=== PATIENT | male | born 1935 | race Caucasian/White ===

== ENCOUNTER 2020-07-05 15:13 | Outpatient (RCR) | payer MEDICARE, SELFPAY ==
[2020-07-05] MEDS: COVID-19 VACC, MRNA(PFIZER)/PF 30 MCG/0.3 ML SYRINGE IM (11:14)
[2020-07-26] MEDS: COVID-19 VACC, MRNA(PFIZER)/PF 30 MCG/0.3 ML SYRINGE IM (11:09)
== END 2020-07-05 23:59 ==
LOC: IMMUN 15:13
PROVIDERS: Visit Provider Family Medicine
DX: Z23 Encounter for immunization (principal)
CPT/HCPCS: 0001A; 0002A; 91300

== ENCOUNTER 2020-09-20 21:24 | Inpatient (IN) | payer MEDICARE, OTHER, SELFPAY ==
[2020-09-20] VITALS (10 sets, daily range): BP systolic 121–176; BP diastolic 40–98; PULSE 92–105; RESP 17–27; TEMP 36.3–37.4; O2SAT 98–99; BMI 26.4
--- NOTE | 2020-09-20 21:38 | PCM.HP.STD ---
HPI - General General Date of Admission: 09/20/20 Date of Service: 09/20/20 Chief Complaint: Severe sepsis HPI Narrative KRYSTINA REYNOLDS, is a 85 M who was directly admitted to ICU at [facility] from an emergency room at [facility], patient went to the hospital there for assessment of generalized weakness, chills, and possible urinary tract infection. Patient had been placed on Keflex 48 hours ago for possible UTI. Labs were obtained at the emergency room, patient's white blood cell count was elevated at 22.5, chemistry profile was remarkable for potassium of 5.7, BUN of 60, creatinine of 2.02, patient's lactic acid was elevated at 3.4, glucose was 281. Patient had an EKG performed which showed sinus tachycardia at 102, no acute ischemic changes were noted, patient had a chest x-ray performed that showed no acute cardiopulmonary findings, UA was unable to be obtained secondary to inability to place a Starr catheter. Covid 19 test was negative, and troponin was unremarkable. Patient was felt to have severe sepsis secondary to acute cystitis-due to self-catheterization at home for urinary retention. Patient was given IV Zosyn at the emergency room and transferred to [facility] ICU for direct admission. [facility] Medical History (Updated 09/21/20 @ 01:[address] Andrew Gleason, ) BPH (benign prostatic hyperplasia) CAD (coronary artery disease) Diabetes mellitus type 2 with complications History of TIA (transient ischemic attack) HLD (hyperlipidemia) HTN (hypertension) Lumbar degenerative disc disease PVD (peripheral vascular disease) Self-catheterizes urinary bladder Urinary retention due to benign prostatic hyperplasia Home Medications aspirin 81 mg PO DAILY 09/20/20 [History Last Taken Unknown] glimepiride [Amaryl] 2 mg PO DAILY 09/20/20 [History Last Taken Unknown] losartan 100 mg PO DAILY 09/20/20 [History Last Taken Unknown] metformin 1,000 mg PO BID 09/20/20 [History Last Taken Unknown] metoprolol succinate 50 mg PO BID 09/20/20 [History Last Taken Unknown] omeprazole [Prilosec] 40 mg PO DAILY 09/20/20 [History Last Taken Unknown] rosuvastatin [Crestor] 5 mg PO QHS 09/20/20 [History Last Taken Unknown] Allergy/AdvReac Type Severity Reaction Status Date / Time Sulfa (Sulfonamide Allergy Unclear Verified 09/20/20 18:31 Antibiotics) Social History Smoking Status: Never smoker ROS Constitutional Constitutional: Reports chills; Denies anorexia, change in weight, fever(s), night sweats or weakness Eyes Eyes: Denies blurry vision, change in vision, discharge from eye(s) or eye pain Cardiovascular Cardiovascular: Denies chest pain, claudication, dyspnea on exertion, edema or palpitations Respiratory/Chest Respiratory/Chest: Denies cough, hemoptysis, shortness of breath at rest or shortness of breath with exertion Gastrointestinal Gastrointestinal: Denies abdominal pain, constipation, diarrhea, hematemesis, hematochezia, melena, nausea or vomiting Genitourinary Genitourinary: Reports dysuria and other Details: Patient states he has chronic urinary retention and has to self catheterize, this has been his norm for approximately 30 years. ; Denies hematuria Musculoskeletal Musculoskeletal: Denies back pain, joint pain, joint stiffness, joint swelling, myalgias or neck pain Neurologic Neurologic: Denies abnormal gait, abnormal speech, dizziness, focal weakness, headache(s), loss of vision, numbness, other visual disturbances, paresthesias, syncope or tingling Psychiatric Psychiatric: Denies anxiety, cognitive impairment, depression, irritability, mood swings or suicidal ideation Endocrine Endocrinology: Denies change in body appearance, cold intolerance, excessive sweating, heat intolerance, polydipsia or polyuria Hematologic/Lymphatic Hematologic/Lymphatic: Denies none, anemia, easy bleeding, easy bruising or lymphadenopathy Allergic/Immunologic Allergic/Immunologic: Denies rhinitis, urticaria, eczemia or asthma Vital Signs Vital Signs Vital Signs: 09/20/20 20:11 09/20/20 20:21 Temperature 97.3 F L 97.7 F L Temperature Source Temporal Temporal Pulse Rate 92 92 Respiratory Rate 18 18 Blood Pressure 121/98 H Blood Pressure Mean 105 Blood Pressure Source Monitor Blood Pressure Position Semi-Fowlers Blood Pressure Location Left Arm Pulse Ox 98 98 Oxygen Delivery Method Room Air Room Air Weight Weight: 88.6 kg Body Mass Index (BMI) 26.4 Physical Exam Const alert, oriented x3, no apparent distress, healthy appearing and well nourished General Appearance: cooperative, well kempt and well developed Orientation / Consciousness: awake, oriented to person, oriented to place and oriented to time HEENT normocephalic, head/scalp atraumatic, hearing grossly normal bilaterally and moist oral mucous membranes Eyes PERRL, EOMs intact bilaterally and conjunctivae normal Neck nuchal rigidity, supple, no JVD, thyroid normal and no carotid bruits General: trachea midline Resp normal respiratory effort, no retractions, no use of accessory muscles and clear to auscultation bilaterally Auscultation: Negative for rales, rhonchi or wheezes Cardio regular rate, regular rhythm, S1 normal heart sound, S2 normal heart sound, no murmurs, no rub, no gallops and no clicks GI normal to inspection, nondistended, normoactive bowel sounds, soft to palpation, non-tender and non-distended Extremity no clubbing, cyanosis or edema Skin no rashes or lesions noted, skin turgor normal and no jaundice General Skin Exam: no breakdown Neuro oriented x3, CN's II-XII intact bilaterally, moves all extremities, no focal motor deficits and no sensory deficits noted Sensorium / Orientation: awake and alert Speech: speech normal Psych thought process normal and affect normal Assessment & Plan Assessment/Plan (1) Severe sepsis: PLAN: 1. Severe sepsis secondary to acute cystitis from chronic self-catheterization due to chronic urinary retention-patient was admitted to ICU, he will remain on IV Zosyn, labs will be monitored. #2 acute cystitis secondary to chronic self-catheterization due to chronic urinary retention-we were able to obtain a urine sample from the patient but unfortunately he had been on antibiotics for 2 days as an outpatient and received IV Zosyn at the emergency room at [facility]. #3 type 2 diabetes-patient's blood sugars will be monitored #4 essential hypertension #5 hyperlipidemia #6 BPH with urinary retention-patient states he undergone two TURPs in the past, he does not currently have a urologist as his urologist has retired. #7 hyperkalemia-patient's labs will be rechecked #8 elevated creatinine at 2.02-patient's previous creatinine according to [facility] records was in 2019-it was 0.93, patient will be given IV fluids and labs will be monitored, I believe he probably has dehydration. Charges/Coding Visit Charges Inpatient E&M: 97595 Init Hosp L3
[2020-09-20] MEDS: 0.9% Normal Saline 1,000 ML 125 ML IV (22:31)
[2020-09-20 22:41] LABS: Bedside Glucose 180 mg/dL (70-110)
[2020-09-20] MEDS: Heparin Injection (Vial) 5,000 UNIT/ML VIAL 5000 UNIT SC (22:47)
[2020-09-21] VITALS (20 sets, daily range): BP systolic 119–209; BP diastolic 49–79; PULSE 90–108; RESP 0–25; TEMP 36.4–37.4; O2SAT 92–100
[2020-09-21] MEDS: Acetaminophen 325 MG Tablet 650 MG PO (04:42)
[2020-09-21 04:46] LABS: Absolute Lymphocyte Count 0.68 X10^3/uL (0.83-4.51); Absolute Neutrophil Count 17.3 X10^3/uL (2.0-7.7); Basophil# 0.07 X10^3/uL; Basophil% 0.4 % (0-1); Eosinophil# 0.02 X10^3/uL; Eosinophils% 0.1 % (0-5); Hematocrit 37.3 % (40-54); Hemoglobin 12.6 g/dL (13.0-16.5); Lymphocyte # 0.68 X10^3/ul (0.83-4.51); Lymphocyte % 3.5 % (19-41); Mean Corp Hgb Conc 33.8 g/dL (32-36); Mean Corpuscular Volume 91.9 fL (80-94); Mean Platelet Vol. 9.3 fl (6.2-12.0); Monocyte# 1.21 X10^3/uL; Monocyte% 6.2 % (0-10); NRBC Flagged by Analyzer 0 % (0-5); Neutrophil # 17.34 X10^3/uL (2.7-7.7); Neutrophil % 89.1 % (47-70); Platelet Count 462 K/mm3 (150-450); RBC Distribution Width CV 13.1 % (11.6-14.6); RBC Distribution Width SD 44.2 fl (35.1-43.9); Red Blood Count 4.06 M/mm3 (4.6-6.2); White Blood Count 19.5 K/mm3 (4.4-11.0)
[2020-09-21 05:01] LABS: Anion Gap 8 (5-15); BUN 56 mg/dL (7-18); BUN/Creat Ratio 28.6 RATIO (10-20); Calcium,Total 7.6 mg/dL (8.5-10.1); Chloride 109 mmol/L (98-107); Creatinine, Serum 1.96 mg/dL (0.70-1.30); EST Glomerular Filtration Rate 35 mL/min (>60); Est Glom Filt Rate - Afr Amer 42 mL/min (>60); Estimated Creatinine Clearance 31.34 ml/min; Glucose 195 mg/dL (74-106); Potassium 5.6 mmol/L (3.5-5.1); Sodium Level 137 mmol/L (136-145)
[2020-09-21] MEDS: Insulin Lispro 100 UNIT/ML INSULN.PEN SC ×2 (06:56→12:00)
[2020-09-21 07:00] LABS: Bedside Glucose 181 mg/dL (70-110)
--- NOTE | 2020-09-21 07:36 | PN.HOSP_ITS ---
Subjective Subjective Patient is an 85-year-old gentleman who performs self-catheterization as a result of chronic urinary retention admitted from [facility] with severe sepsis secondary to acute cystitis Objective Data Objective Data Vital Signs: Vital Signs Temp Pulse Resp BP Pulse Ox 98.7 F 97 21 H 159/59 H 98 09/21/20 06:00 09/21/20 06:00 09/21/20 06:00 09/21/20 06:00 09/21/20 06:00 Oxygen Delivery Method Room Air Weight: 89 kg Body Mass Index (BMI) 26.4 Intake & Output: Intake and Output for Last 24 Hours 09/19/20 09/20/20 09/21/20 23:59 23:59 23:59 Intake Total 440 / 440 Output Total 225 / 450 525 / 525 Balance -225 / -210 -85 / -85 Lab / Micro Data Result Diagrams: 09/21/20 04:35 09/21/20 04:35 Labs: Laboratory Results - last 24 hr 09/20/20 09/21/20 09/21/20 22:36 04:35 04:35 WBC 19.5 H RBC 4.06 L Hgb 12.6 L Hct 37.3 L MCV 91.9 MCH 31.0 MCHC 33.8 RDW Std Deviation 44.2 H RDW Coeff of Andrea 13.1 Plt Count 462 H MPV 9.3 Immature Gran % (Auto) 0.700 Neut % (Auto) 89.1 H Lymph % (Auto) 3.5 L [place] % (Auto) 6.2 Eos % (Auto) 0.1 Baso % (Auto) 0.4 Absolute Neuts (auto) 17.3 H Absolute Lymphs (auto) 0.68 L Nucleated RBC % 0 Sodium 137 Potassium 5.6 H Chloride 109 H Carbon Dioxide 20.0 L Anion Gap 8 BUN 56 H Creatinine 1.96 H Estim Creat Clear Calc 31.34 Est GFR (MDRD) Af Amer 42 L Est GFR (MDRD) Non-Af 35 L BUN/Creatinine Ratio 28.6 H Glucose 195 H Calcium 7.6 L POC Glucose 180 H 09/21/20 06:56 WBC RBC Hgb Hct MCV MCH MCHC RDW Std Deviation RDW Coeff of Andrea Plt Count MPV Immature Gran % (Auto) Neut % (Auto) Lymph % (Auto) [place] % (Auto) Eos % (Auto) Baso % (Auto) Absolute Neuts (auto) Absolute Lymphs (auto) Nucleated RBC % Sodium Potassium Chloride Carbon Dioxide Anion Gap BUN Creatinine Estim Creat Clear Calc Est GFR (MDRD) Af Amer Est GFR (MDRD) Non-Af BUN/Creatinine Ratio Glucose Calcium POC Glucose 181 H Physical Exam Narrative GENERAL: cooperative HEENT: Atraumatic; EYES; Anicteric, Normal Conjunctiva NECK; supple, normal thyroid, RESPIRATORY: Diminished to auscultation CARDIOVASCULAR: Regular S1 S2, GI: soft, normoactive bowel sounds, : No Renal angle tenderness; EXTREMITIES: No edema, no clubbing, MUSCULOSKELETAL: no muscle waisting NEURO: Awake; no lateralizing signs. SKIN: No Rash PSYCH; Flat affect Assessment & Plan Assessment/Plan (1) Severe sepsis: PLAN: Patient is an 85-year-old gentleman who performs self-c atheterization as a result of chronic urinary retention admitted from [facility] with severe sepsis secondary to acute cystitis 1. Severe sepsis ?Secondary to acute cystitis from chronic self-catheterization as a result of chronic urinary retention. Admitted to the intensive care unit management protocol with IV fluid resuscitation monitoring with CBC BMP and lactic acid. Cultures were sent with plans to adjust fluids based on culture result 2. Essential hypertension ?Patient blood pressure markedly elevated added amlodipine and hydralazine to patient's therapy 3. Dyslipidemia -Patient is on statin therapy, continued at home dose 4. Diabetes mellitus type II -patient's oral hypoglycemics held. Placed on long acting insulin, Accu-Cheks a.c. and at bedtime and covered with sliding scale insulin 5. BPH ?With chronic urinary retention patient performs self-catheterization at home has previously undergone 2 previous TURPs in the past 6. Hyperkalemia ?Secondary to patient impaired kidney function treated per protocol with subsequent monitoring of electrolytes ordered 7. Renal failure ?Chronicity unknown baseline creatinine not available patient be resuscitated with IV fluid with subsequent monitoring. Also ordered kidney ultrasound 8. GERD ?On PPI 9. DVT prophylaxis - heparin Charges/Coding Visit Charges Inpatient E&M: 40579 [facility] Hosp L3
[2020-09-21] MEDS: 0.9% Normal Saline 1,000 ML 125 ML IV ×2 (08:20→16:37)
[2020-09-21] MEDS: Glimepiride 2 MG Tablet PO (08:22)
[2020-09-21] MEDS: Aspirin E.C. 81 MG Tablet PO (08:22)
[2020-09-21] MEDS: Losartan Potassium 100 MG Tablet PO (08:23)
[2020-09-21] MEDS: Pantoprazole Sodium 40 MG Tablet PO (08:23)
[2020-09-21] MEDS: Metoprolol(XL)Succ 50 MG Tablet PO ×2 (08:23→21:35)
[2020-09-21] MEDS: Heparin Injection (Vial) 5,000 UNIT/ML VIAL 5000 UNIT SC ×2 (08:23→21:35)
[2020-09-21] MEDS: Ondansetron 4 MG/2 ML Vial IV (08:25)
--- NOTE | 2020-09-21 09:20 | RAD_ITS ---
STUDY: X-RAY - ABDOMEN/PELVIS REASON FOR EXAM: Male, 85 years old. Abdominal distension TECHNIQUE: AP supine and decubitus views of the abdomen and pelvis. COMPARISON: None. FINDINGS: Normal visualized lung bases. There is a moderate amount of colonic fecal material. The visualized liver, spleen and kidneys are grossly normal in size and morphology. There are calcified phleboliths in the pelvis. There are diffuse degenerative changes of the visualized lumbar spine. RAD/Abd Inc Decub and/or Erect IMPRESSION: Moderate amount of fecal material is seen in the colon. Electronically Signed: Deny Moon MD at 14:53 EDT , Service support ,
[2020-09-21 11:24] LABS: Anion Gap 9 (5-15); BUN 54 mg/dL (7-18); BUN/Creat Ratio 25.4 RATIO (10-20); Calcium,Total 7.9 mg/dL (8.5-10.1); Chloride 108 mmol/L (98-107); Creatinine, Serum 2.13 mg/dL (0.70-1.30); EST Glomerular Filtration Rate 32 mL/min (>60); Est Glom Filt Rate - Afr Amer 38 mL/min (>60); Estimated Creatinine Clearance 28.84 ml/min; Glucose 233 mg/dL (74-106); Potassium 5.5 mmol/L (3.5-5.1); Sodium Level 137 mmol/L (136-145)
[2020-09-21] MEDS: proMETHazine 25 MG/ML Syringe 12.5 MG IM (11:57)
[2020-09-21] MEDS: amLODIPine 10 MG Tablet PO (12:00)
[2020-09-21] MEDS: hydrALAZINE 25 MG Tablet PO ×2 (12:00→21:34)
[2020-09-21 12:16] LABS: Bedside Glucose 202 mg/dL (70-110)
--- NOTE | 2020-09-21 13:10 | CASEMGMT ---
MINH IZAGUIRRE Assessment: Face to Face with pt for initial transition planning/care coordination assessment. RN CM introduced self and role at [facility], pt voices understanding and consents to assessment. Pt is A/O x4 and answers all questions appropriately at this time. Pt lying in bed with at bedside. Care providers, pharmacy, and demographics verified/updated. Admitting Dx: Severe sepsis, UTI PCP: Adry Specialists: osvaldo Quevedo Preferred Pharmacy: [facility] Insurance: [facility] Prescription Benefit: yes LW/HPOA: Pt denies having LW/DPOA. LNOK: Lidya Benites, Living Arrangements: Pt lives with in a single story house with two steps to enter. Pt states he was I with ADL's at home. Pt denies concerns at home. Transportation: Pt states he drives self and denies issues with transportation. DME/HHC/SNF: Pt denies having any DME, previous HHC or SNF stays. Pt states no concerns with going home at time of dc. Therapy has not worked with patient yet. Pt states if it is recommended he may be agreeable to HH therapy in the home. Patient was provided a list of HHC providers including quality and resource use data and consistent with the patient?s preferred geographic region, medical needs, and insurance network. Pt states no further concerns/needs. CM to follow for therapy needs. Advised pt to ask CM if any further question/concerns/needs arise, voices understanding. Pt Goal: Home Plan: Home
[2020-09-21 16:41] LABS: Bedside Glucose 142 mg/dL (70-110)
[2020-09-21] MEDS: Atorvastatin Calcium 10 MG Tablet PO (21:35)
[2020-09-21 21:45] LABS: Bedside Glucose 132 mg/dL (70-110)
[2020-09-21] MEDS: Bisacodyl 10 MG Suppository RC (22:22)
[2020-09-21] MEDS: Temazepam 15 MG Capsule PO (22:22)
[2020-09-22] VITALS (10 sets, daily range): BP systolic 129–152; BP diastolic 55–80; PULSE 78–103; RESP 16–20; TEMP 36.6–36.8; O2SAT 94–97
[2020-09-22] MEDS: 0.9% Normal Saline 1,000 ML 125 ML IV (00:25)
[2020-09-22] MEDS: hydrALAZINE 25 MG Tablet PO ×3 (06:28→22:21)
[2020-09-22 06:40] LABS: Bedside Glucose 136 mg/dL (70-110)
[2020-09-22 07:07] LABS: Absolute Lymphocyte Count 0.84 X10^3/uL (0.83-4.51); Absolute Neutrophil Count 11.7 X10^3/uL (2.0-7.7); Basophil# 0.06 X10^3/uL; Basophil% 0.4 % (0-1); Eosinophil# 0.09 X10^3/uL; Eosinophils% 0.7 % (0-5); Hematocrit 37.1 % (40-54); Hemoglobin 12.2 g/dL (13.0-16.5); Lymphocyte # 0.84 X10^3/ul (0.83-4.51); Lymphocyte % 6.2 % (19-41); Mean Corp Hgb Conc 32.9 g/dL (32-36); Mean Corpuscular Hgb 30.7 pg (27.0-32.0); Mean Corpuscular Volume 93.2 fL (80-94); Mean Platelet Vol. 9.4 fl (6.2-12.0); Monocyte# 0.86 X10^3/uL; Monocyte% 6.3 % (0-10); NRBC Flagged by Analyzer 0 % (0-5); Neutrophil # 11.66 X10^3/uL (2.7-7.7); Neutrophil % 85.9 % (47-70); Platelet Count 487 K/mm3 (150-450); RBC Distribution Width CV 13.2 % (11.6-14.6); RBC Distribution Width SD 45.7 fl (35.1-43.9); Red Blood Count 3.98 M/mm3 (4.6-6.2); White Blood Count 13.6 K/mm3 (4.4-11.0)
[2020-09-22 07:31] LABS: Anion Gap 7 (5-15); BUN 53 mg/dL (7-18); BUN/Creat Ratio 20.9 RATIO (10-20); Calcium,Total 7.6 mg/dL (8.5-10.1); Chloride 112 mmol/L (98-107); Creatinine, Serum 2.54 mg/dL (0.70-1.30); EST Glomerular Filtration Rate 26 mL/min (>60); Est Glom Filt Rate - Afr Amer 31 mL/min (>60); Estimated Creatinine Clearance 23.44 ml/min; Glucose 137 mg/dL (74-106); Potassium 5.3 mmol/L (3.5-5.1); Sodium Level 139 mmol/L (136-145)
--- NOTE | 2020-09-22 07:40 | PN.HOSP_ITS ---
Subjective Subjective Patient was transferred from the ICU to [facility] floor. Seen this a.m. has markedly distended abdomen stat KUB ordered demonstrated Nonspecific gaseous small bowel with air-fluid levels could be due to ileus. Early bowel obstruction is less likely.. Patient also complaining of being constipated was given suppository without much effect. There is also worsening of patient's kidney function Objective Data Objective Data Vital Signs: Vital Signs Temp Pulse Resp BP Pulse Ox 97.9 F 81 16 142/80 H 94 09/22/20 02:10 09/22/20 06:28 09/22/20 02:10 09/22/20 06:28 09/22/20 02:10 Oxygen Delivery Method Room Air Weight: 75.2 kg Body Mass Index (BMI) 26.4 Intake & Output: Intake and Output for Last 24 Hours 09/20/20 09/21/20 09/22/20 23:59 23:59 23:59 Intake Total 2540.5 / 2540.5 1098.75 / 1098.75 Output Total 225 / 450 950 / 950 100 / 100 Balance -225 / -210 1590.5 / 1590.5 998.75 / 998.75 Lab / Micro Data Result Diagrams: 09/22/20 06:14 09/22/20 06:14 Labs: Laboratory Results - last 24 hr 09/21/20 09/21/20 09/21/20 10:20 11:55 16:33 WBC RBC Hgb Hct MCV MCH MCHC RDW Std Deviation RDW Coeff of Andrea Plt Count MPV Immature Gran % (Auto) Neut % (Auto) Lymph % (Auto) [place] % (Auto) Eos % (Auto) Baso % (Auto) Absolute Neuts (auto) Absolute Lymphs (auto) Nucleated RBC % Sodium 137 Potassium 5.5 H Chloride 108 H Carbon Dioxide 20.0 L Anion Gap 9 BUN 54 H Creatinine 2.13 H Estim Creat Clear Calc 28.84 Est GFR (MDRD) Af Amer 38 L Est GFR (MDRD) Non-Af 32 L BUN/Creatinine Ratio 25.4 H Glucose 233 H Calcium 7.9 L Magnesium POC Glucose 202 H 142 H 09/21/20 09/22/20 09/22/20 21:33 06:14 06:14 WBC 13.6 H RBC 3.98 L Hgb 12.2 L Hct 37.1 L MCV 93.2 MCH 30.7 MCHC 32.9 RDW Std Deviation 45.7 H RDW Coeff of Andrea 13.2 Plt Count 487 H MPV 9.4 Immature Gran % (Auto) 0.500 Neut % (Auto) 85.9 H Lymph % (Auto) 6.2 L [place] % (Auto) 6.3 Eos % (Auto) 0.7 Baso % (Auto) 0.4 Absolute Neuts (auto) 11.7 H Absolute Lymphs (auto) 0.84 Nucleated RBC % 0 Sodium 139 Potassium 5.3 H Chloride 112 H Carbon Dioxide 20.0 L Anion Gap 7 BUN 53 H Creatinine 2.54 H Estim Creat Clear Calc 23.44 Est GFR (MDRD) Af Amer 31 L Est GFR (MDRD) Non-Af 26 L BUN/Creatinine Ratio 20.9 H Glucose 137 H Calcium 7.6 L Magnesium 2.0 POC Glucose 132 H 09/22/20 06:25 WBC RBC Hgb Hct MCV MCH MCHC RDW Std Deviation RDW Coeff of Andrea Plt Count MPV Immature Gran % (Auto) Neut % (Auto) Lymph % (Auto) [place] % (Auto) Eos % (Auto) Baso % (Auto) Absolute Neuts (auto) Absolute Lymphs (auto) Nucleated RBC % Sodium Potassium Chloride Carbon Dioxide Anion Gap BUN Creatinine Estim Creat Clear Calc Est GFR (MDRD) Af Amer Est GFR (MDRD) Non-Af BUN/Creatinine Ratio Glucose Calcium Magnesium POC Glucose 136 H Radiography Diagnostic Testing: Radiology Impression Abdomen X-Ray 09/21/20 09:20 IMPRESSION: Moderate amount of fecal material is seen in the colon. Electronically Signed: Deny Moon MD at 14:53 EDT , Service support , Physical Exam Narrative GENERAL: cooperative HEENT: Atraumatic; EYES; Anicteric, Normal Conjunctiva NECK; supple, normal thyroid, RESPIRATORY: Diminished to auscultation CARDIOVASCULAR: Regular S1 S2, GI: Abdomen is distended tympanic to percussion : No Renal angle tenderness; EXTREMITIES: No edema, no clubbing, MUSCULOSKELETAL: no muscle waisting NEURO: Awake; no lateralizing signs. SKIN: No Rash PSYCH; Flat affect Assessment & Plan Assessment/Plan (1) Severe sepsis: PLAN: Patient is an 85-year-old gentleman who performs self- catheterization as a result of chronic urinary retention admitted from [facility] with severe sepsis secondary to acute cystitis 1. Severe sepsis ?Secondary to acute cystitis from chronic self-catheterization as a result of chronic urinary retention. Admitted to the intensive care unit management protocol with IV fluid resuscitation monitoring with CBC BMP and lactic acid. Cultures were sent with plans to adjust fluids based on culture result -Patient's WBC count remains elevated 2. Abdominal distention ?Imaging studies obtained demonstrated Nonspecific gaseous small bowel with air- fluid levels could be due to ileus. Early bowel obstruction is less likely. Patient is kept n.p.o. small bowel series with Gastrografin ordered for subseque nt evaluation 3. Acute renal failure ?Patient kidney function continues to worsen on IV fluids. Ordered kidney ultrasound 4. Diabetes mellitus type II -patient's oral hypoglycemics held. Placed on long acting insulin, Accu-Cheks a.c. and at bedtime and covered with sliding scale insulin -Patient long-acting insulin held in view of patient being kept n.p.o. 5. BPH ?With chronic urinary retention patient performs self-catheterization at home has previously undergone 2 previous TURPs in the past 6. Hyperkalemia ?Secondary to patient impaired kidney function treated per protocol with sub sequent monitoring of electrolytes ordered 7. Essential hypertension ?Patient blood pressure markedly elevated added amlodipine and hydralazine to patient's therapy 8. Dyslipidemia -Patient is on statin therapy, continued at home dose 9. GERD ?On PPI 10. DVT prophylaxis - heparin Charges/Coding Visit Charges Inpatient E&M: 30201 [facility] Hosp L3
[2020-09-22] MEDS: Aspirin E.C. 81 MG Tablet PO (08:08)
[2020-09-22] MEDS: 0.9% Normal Saline 1,000 ML 150 ML IV ×2 (08:09→18:05)
[2020-09-22] MEDS: Ondansetron 4 MG/2 ML Vial IV (08:35)
[2020-09-22] MEDS: 0.9% Saline Lock 10 ML Syringe IV ×4 (08:35→14:04)
--- NOTE | 2020-09-22 08:56 | RAD_ITS ---
STUDY: X-RAY - ABDOMEN/PELVIS REASON FOR EXAM: Male, 85 years old. Abdominal distension TECHNIQUE: Supine and upright. COMPARISON: None. FINDINGS: Nonspecific gaseous small bowel loops and colon with air-fluid levels. There is no demonstrated free abdominal air. Rectal line is seen. Normal soft tissue structures. Degenerative changes in the spine. RAD/Abd Inc Decub and/or Erect IMPRESSION: Nonspecific gaseous small bowel with air-fluid levels could be due to ileus. Early bowel obstruction is less likely. Electronically Signed: Callum Centeno MD at 9:16 EDT Tel , Service support ,
[2020-09-22] MEDS: Ceftriaxone 1 GM/50 ML BAG IV (09:33)
[2020-09-22] MEDS: Heparin Injection (Vial) 5,000 UNIT/ML VIAL 5000 UNIT SC ×2 (09:43→22:23)
[2020-09-22] MEDS: Metoprolol(XL)Succ 50 MG Tablet PO (09:44)
[2020-09-22] MEDS: amLODIPine 10 MG Tablet PO (09:45)
[2020-09-22] MEDS: Pantoprazole Sodium 40 MG Tablet PO (09:45)
--- NOTE | 2020-09-22 09:45 | US_ITS ---
EXAM: US RETROPERITONEAL COMPLETE, RENAL CLINICAL INDICATION: Renal failure TECHNIQUE: Grayscale and color Doppler sonographic evaluation of the retroperitoneum was performed. This report was created using [employer] report [employer] technology. COMPARISON: None. FINDINGS: LIMITATIONS: Limited by bowel gas and patient condition. RIGHT KIDNEY: Mild right hydronephrosis. Right renal cortical thinning. No shadowing calculus. No perinephric collection is demonstrated. LEFT KIDNEY: Left renal cortical thinning. 2 left renal simple-appearing cysts with well-defined margins, anechoic internal structure and posterior acoustic enhancement measure up to 3.5 cm. No required imaging follow-up needed given high likelihood of benign nature. No hydronephrosis. No shadowing calculus. No perinephric collection is demonstrated. BLADDER: Urinary bladder is decompressed by Starr catheter. FREE FLUID: Mild ascites adjacent to the liver. US/Kidney and Bladder IMPRESSION: 1. Mild ascites adjacent to the liver. 2. Mild right hydronephrosis. 3. Bilateral renal cortical thinning suggesting chronic medical renal disease. Electronically Signed: Pedrito Luis MD ([place]) at 15:30 EDT , Service support ,
[2020-09-22 11:30] LABS: Bedside Glucose 203 mg/dL (70-110)
--- NOTE | 2020-09-22 12:30 | RAD_ITS ---
STUDY: X-RAY - ABDOMEN/PELVIS REASON FOR EXAM: Male, 85 years old. ng placement TECHNIQUE: Single AP view of the abdomen / pelvis. COMPARISON: None. FINDINGS: Esophagogastric tube extends to the gastric fundus. Mild gaseous distention of colon and small bowel, incompletely visualized. There is no demonstrated free abdominal air. The visualized liver, spleen and kidneys are grossly normal in size and morphology. Normal soft tissue structures. There are diffuse degenerative changes of the visualized lumbar spine. RAD/Abdomen Single View (Portable) IMPRESSION: Esophagogastric tube extends to the gastric fundus. Electronically Signed: Pedrito Luis MD ([place]) at 15:28 EDT , Service support ,
[2020-09-22 16:31] LABS: Bedside Glucose 161 mg/dL (70-110)
[2020-09-22] MEDS: Insulin Lispro 100 UNIT/ML INSULN.PEN SC (22:23)
[2020-09-22 22:31] LABS: Bedside Glucose 177 mg/dL (70-110)
[2020-09-23] VITALS (32 sets, daily range): BP systolic 49–184; BP diastolic 20–70; PULSE 50–127; RESP 18–35; TEMP 36.3–36.9; O2SAT 90–99
[2020-09-23] MEDS: 0.9% Normal Saline 1,000 ML 150 ML IV ×2 (00:31→06:49)
[2020-09-23] MEDS: 0.9% Normal Saline 1,000 ML 999 ML IV ×2 (00:50→23:50)
[2020-09-23 05:23] LABS: Absolute Lymphocyte Count 0.78 X10^3/uL (0.83-4.51); Absolute Neutrophil Count 12.4 X10^3/uL (2.0-7.7); Basophil# 0.07 X10^3/uL; Basophil% 0.5 % (0-1); Eosinophil# 0.02 X10^3/uL; Eosinophils% 0.1 % (0-5); Hematocrit 41.1 % (40-54); Hemoglobin 13.4 g/dL (13.0-16.5); Lymphocyte # 0.78 X10^3/ul (0.83-4.51); Lymphocyte % 5.5 % (19-41); Mean Corp Hgb Conc 32.6 g/dL (32-36); Mean Corpuscular Hgb 30.7 pg (27.0-32.0); Mean Corpuscular Volume 94.3 fL (80-94); Mean Platelet Vol. 9.2 fl (6.2-12.0); Monocyte# 0.82 X10^3/uL; Monocyte% 5.8 % (0-10); NRBC Flagged by Analyzer 0 % (0-5); Neutrophil # 12.38 X10^3/uL (2.7-7.7); Neutrophil % 87.3 % (47-70); Platelet Count 525 K/mm3 (150-450); RBC Distribution Width CV 13.2 % (11.6-14.6); RBC Distribution Width SD 45.8 fl (35.1-43.9); Red Blood Count 4.36 M/mm3 (4.6-6.2); White Blood Count 14.2 K/mm3 (4.4-11.0)
[2020-09-23 05:39] LABS: Anion Gap 10 (5-15); BUN 60 mg/dL (7-18); BUN/Creat Ratio 20.7 RATIO (10-20); Calcium,Total 7.8 mg/dL (8.5-10.1); Chloride 114 mmol/L (98-107); EST Glomerular Filtration Rate 22 mL/min (>60); Est Glom Filt Rate - Afr Amer 27 mL/min (>60); Estimated Creatinine Clearance 20.53 ml/min; Glucose 134 mg/dL (74-106); Potassium 5.4 mmol/L (3.5-5.1); Sodium Level 140 mmol/L (136-145)
[2020-09-23] MEDS: hydrALAZINE 25 MG Tablet PO ×2 (06:45→15:11)
[2020-09-23 06:56] LABS: Bedside Glucose 136 mg/dL (70-110)
--- NOTE | 2020-09-23 07:31 | PN.HOSP_ITS ---
Subjective Subjective Patient seen, abdomen remains distended however no significant output from his NG tube. Per nursing staff also had a bowel movement. Ordered CT of the abdomen with oral contrast for subsequent evaluation. Patient kidney function continues to worsen with potassium up to 5.4. Renal ultrasound obtained the day prior reviewed Objective Data Objective Data Vital Signs: Vital Signs Temp Pulse Resp BP Pulse Ox 97.4 F L 102 H 18 141/57 H 96 09/23/20 03:10 09/23/20 06:45 09/23/20 03:10 09/23/20 06:45 09/23/20 03:10 Oxygen Delivery Method Room Air Weight: 75 kg Body Mass Index (BMI) 26.4 Intake & Output: Intake and Output for Last 24 Hours 09/21/20 09/22/20 09/23/20 23:59 23:59 23:59 Intake Total 2540.5 / 2540.5 3354.59 / 3354.59 1910 / 1910 Output Total 950 / 950 750 / 1200 650 / 650 Balance 1590.5 / 1590.5 2604.59 / 2154.59 1260 / 1260 Lab / Micro Data Result Diagrams: 09/23/20 04:55 09/23/20 04:55 Labs: Laboratory Results - last 24 hr 09/22/20 09/22/20 09/22/20 06:14 11:09 16:16 WBC RBC Hgb Hct MCV MCH MCHC RDW Std Deviation RDW Coeff of Andrea Plt Count MPV Immature Gran % (Auto) Neut % (Auto) Lymph % (Auto) [place] % (Auto) Eos % (Auto) Baso % (Auto) Absolute Neuts (auto) Absolute Lymphs (auto) Nucleated RBC % Sodium 139 Potassium 5.3 H Chloride 112 H Carbon Dioxide 20.0 L Anion Gap 7 BUN 53 H Creatinine 2.54 H Estim Creat Clear Calc 23.44 Est GFR (MDRD) Af Amer 31 L Est GFR (MDRD) Non-Af 26 L BUN/Creatinine Ratio 20.9 H Glucose 137 H Calcium 7.6 L Magnesium 2.0 POC Glucose 203 H 161 H 09/22/20 09/23/20 09/23/20 22:18 04:55 04:55 WBC 14.2 H RBC 4.36 L Hgb 13.4 Hct 41.1 MCV 94.3 H MCH 30.7 MCHC 32.6 RDW Std Deviation 45.8 H RDW Coeff of Andrea 13.2 Plt Count 525 H MPV 9.2 Immature Gran % (Auto) 0.800 Neut % (Auto) 87.3 H Lymph % (Auto) 5.5 L [place] % (Auto) 5.8 Eos % (Auto) 0.1 Baso % (Auto) 0.5 Absolute Neuts (auto) 12.4 H Absolute Lymphs (auto) 0.78 L Nucleated RBC % 0 Sodium 140 Potassium 5.4 H Chloride 114 H Carbon Dioxide 16.0 L Anion Gap 10 BUN 60 H Creatinine 2.90 H Estim Creat Clear Calc 20.53 Est GFR (MDRD) Af Amer 27 L Est GFR (MDRD) Non-Af 22 L BUN/Creatinine Ratio 20.7 H Glucose 134 H Calcium 7.8 L Magnesium POC Glucose 177 H 09/23/20 06:40 WBC RBC Hgb Hct MCV MCH MCHC RDW Std Deviation RDW Coeff of Andrea Plt Count MPV Immature Gran % (Auto) Neut % (Auto) Lymph % (Auto) [place] % (Auto) Eos % (Auto) Baso % (Auto) Absolute Neuts (auto) Absolute Lymphs (auto) Nucleated RBC % Sodium Potassium Chloride Carbon Dioxide Anion Gap BUN Creatinine Estim Creat Clear Calc Est GFR (MDRD) Af Amer Est GFR (MDRD) Non-Af BUN/Creatinine Ratio Glucose Calcium Magnesium POC Glucose 136 H Radiography Diagnostic Testing: Radiology Impression Abdomen X-Ray 09/22/20 08:56 IMPRESSION: Nonspecific gaseous small bowel with air-fluid levels could be due to ileus. Early bowel obstruction is less likely. Electronically Signed: Callum Centeno MD at 9:16 EDT Tel , Service support , Renal Ultrasound 09/22/20 09:45 IMPRESSION: 1. Mild ascites adjacent to the liver. 2. Mild right hydronephrosis. 3. Bilateral renal cortical thinning suggesting chronic medical renal disease. Electronically Signed: Pedrito Luis MD ([place]) at 15:30 EDT , Service support , KUB X-Ray 09/22/20 12:30 IMPRESSION: Esophagogastric tube extends to the gastric fundus. Electronically Signed: Pedrito Luis MD ([place]) at 15:28 EDT , Service support , Physical Exam Narrative GENERAL: cooperative HEENT: Atraumatic; EYES; Anicteric, Normal Conjunctiva NECK; supple, normal thyroid, RESPIRATORY: Diminished to auscultation CARDIOVASCULAR: Regular S1 S2, GI: Abdomen is distended tympanic to percussion : No Renal angle tenderness; EXTREMITIES: No edema, no clubbing, MUSCULOSKELETAL: no muscle waisting NEURO: Awake; no lateralizing signs. SKIN: No Rash PSYCH; Flat affect Assessment & Plan Assessment/Plan (1) Severe sepsis: PLAN: Patient is an 85-year-old gentleman who performs self- catheterization as a result of chronic urinary retention admitted from [facility] with severe sepsis secondary to acute cystitis 1. Severe sepsis ?Secondary to acute cystitis from chronic self-catheterization as a result of chronic urinary retention. Admitted to the intensive care unit management protocol with IV fluid resuscitation monitoring with CBC BMP and lactic acid. Cultures were sent with plans to adjust fluids based on culture result -Patient's WBC count remains elevated -09/23/2020; repeat cultures ordered was not sent. 2. Abdominal distention ?Imaging studies obtained demonstrated Nonspecific gaseous small bowel with air- fluid levels could be due to ileus. Early bowel obstruction is less likely. Patient is kept n.p.o. small bowel series with Gastrografin ordered for subsequent evaluation -09/23/2020. Gastrografin test ordered yesterday could not be performed after an NG tube was placed and the contrast material suctioned out. Abdomen remains distended. CT of the abdomen with oral contrast ordered for subsequent evaluation 3. Acute renal failure ?Patient kidney function continues to worsen on IV fluids. Ordered kidney ultrasound ?09/23/2020; renal ultrasound demonstrated mild right hydronephrosis with bilateral renal cortical thinning suggesting chronic medical renal disease. With worsening kidney function consult was placed to nephrology 4. Diabetes mellitus type II -patient's oral hypoglycemics held. Placed on long acting insulin, Accu-Cheks a.c. and at bedtime and covered with sliding scale insulin -Patient long-acting insulin held in view of patient being kept n.p.o. 5. BPH ?With chronic urinary retention patient performs self-catheterization at home has previously undergone 2 previous TURPs in the past 6. Hyperkalemia ?Secondary to patient impaired kidney function treated per protocol with subsequent monitoring of electrolytes ordered ?09/23/2020. Potassium remains elevated patient treated with calcium gluconate dextrose and insulin with subsequent monitoring of electrolytes ordered 7. Essential hypertension ?Patient blood pressure markedly elevated added amlodipine and hydralazine to patient's therapy 8. Dyslipidemia -Patient is on statin therapy, continued at home dose 9. GERD ?On PPI 10. DVT prophylaxis - heparin Charges/Coding Visit Charges Inpatient E&M: 11107 Subs Hosp L3
--- NOTE | 2020-09-23 08:23 | CT_ITS ---
STUDY: CT ABDOMEN AND PELVIS WITHOUT CONTRAST REASON FOR EXAM: Male, 85 years old. Bowel obstruction RADIATION DOSAGE (If Supplied By Facility): CTDIvol = ( 15.33 ) mGy, DLP = ( 792.75 ) mGycm TECHNIQUE: Transaxial images were obtained from the dome of the diaphragm to the symphysis pubis with oral contrast, and without intravenous contrast. Sagittal and coronal images were reconstructed. Individualized dose optimization techniques were used for this CT. COMPARISON: None. FINDINGS: Large bilateral pleural effusions with bibasilar atelectasis. The visualized portions of the heart are within normal limits. Moderate amount of ascites. Edema of the subcutaneous fat suggestive of anasarca. Normal liver. There is non-visualization of the gallbladder, which may be secondary to either contraction or a prior cholecystectomy. Normal spleen. Normal pancreas. Normal bilateral adrenal glands. Normal right kidney. Normal left kidney. Nasogastric tube with the tip in the body the stomach. Normal small intestine. There are multiple colonic diverticula consistent with diverticulosis. There is non-visualization of the appendix. Normal abdominal aorta. Normal inferior vena cava. 5 cm ill-defined area of soft tissue attenuation in the right anterior pararenal space surrounding the inferior vena cava and adjacent to the duodenum and right kidney which may represent lymphadenopathy or scarring. Starr catheter within the collapsed bladder. Normal abdominal wall. There are diffuse degenerative changes of the visualized lumbar spine. CT/Abdomen/Pel W ORAL Cont Only IMPRESSION: 1. No bowel obstruction. 2. Volume overload with anasarca, moderate amount of ascites, and large bilateral pleural effusions with bibasilar atelectasis. 3. 5 cm ill-defined area of soft tissue attenuation in the right anterior pararenal space surrounding the inferior vena cava and adjacent to the duodenum and medial aspect of the right kidney of uncertain etiology and significance which may represent scarring or lymphadenopathy. Electronically Signed: Art Marmolejo MD at 11:43 EDT Tel , Service support ,
[2020-09-23] MEDS: Heparin Injection (Vial) 5,000 UNIT/ML VIAL 5000 UNIT SC ×2 (09:19→22:09)
[2020-09-23] MEDS: 0.9% Saline Lock 10 ML Syringe IV ×7 (09:38→20:11)
[2020-09-23] MEDS: Insulin Lispro 10 UNIT in Syringe 0 ML 6 UNIT IV (09:39)
[2020-09-23] MEDS: Dextrose 50%-Water 25 GM/50 ML DISP.SYRIN IV (09:40)
[2020-09-23] MEDS: Sodium Bicarbonate 8.4% 50 ML Syringe 100 MEQ IV (09:45)
[2020-09-23] MEDS: Ceftriaxone 1 GM/50 ML BAG IV (10:01)
[2020-09-23] MEDS: Ondansetron 4 MG/2 ML Vial IV ×2 (10:16→18:27)
[2020-09-23 10:50] LABS: Bedside Glucose 194 mg/dL (70-110)
[2020-09-23] MEDS: Pantoprazole Sodium 40 MG Tablet PO (11:20)
[2020-09-23] MEDS: amLODIPine 10 MG Tablet PO (11:20)
[2020-09-23] MEDS: Insulin Lispro 100 UNIT/ML INSULN.PEN SC ×2 (12:44→22:09)
[2020-09-23] MEDS: Metoprolol Tartrate 25 MG Tablet PO (13:38)
[2020-09-23] MEDS: Furosemide 100 MG/10 ML Vial 60 MG IV (13:40)
[2020-09-23] MEDS: Acetaminophen 325 MG Tablet 650 MG PO (15:11)
[2020-09-23] MEDS: proMETHazine 25 MG/ML Syringe IM (17:09)
[2020-09-23 17:20] LABS: Bedside Glucose 188 mg/dL (70-110)
[2020-09-23] MEDS: hydrALAZINE 20 MG/ML Vial 10 MG IV (18:25)
[2020-09-23] MEDS: Furosemide 40 MG/4 ML Vial IV (18:27)
[2020-09-23 19:31] LABS: Allen Test Positive; Base Excess -16 mmol/L (-2 to +2); Bicarbonate 9.1 mmol/L (22-26); Blood Gas Specimen Type ART; O2 Delivery Device Cannula; PO2 115 mmHG (75-100); SITE R Radial; SO2 99 % (95-99); Total Carbon Dioxide 10 mmol/L; pCO2 15.7 mmHg (35-45); pH 7.37 (7.35-7.45)
[2020-09-23 19:35] LABS: Bedside Glucose 213 mg/dL (70-110)
[2020-09-23 19:41] LABS: Absolute Lymphocyte Count 0.58 X10^3/uL (0.83-4.51); Absolute Neutrophil Count 15.6 X10^3/uL (2.0-7.7); Basophil# 0.04 X10^3/uL; Basophil% 0.2 % (0-1); Hematocrit 40.6 % (40-54); Hemoglobin 13.7 g/dL (13.0-16.5); Lymphocyte # 0.58 X10^3/ul (0.83-4.51); Lymphocyte % 3.4 % (19-41); Mean Corp Hgb Conc 33.7 g/dL (32-36); Mean Corpuscular Hgb 31.3 pg (27.0-32.0); Mean Corpuscular Volume 92.7 fL (80-94); Mean Platelet Vol. 9.1 fl (6.2-12.0); Monocyte# 0.66 X10^3/uL; Monocyte% 3.9 % (0-10); NRBC Flagged by Analyzer 0 % (0-5); Neutrophil # 15.59 X10^3/uL (2.7-7.7); Neutrophil % 91.9 % (47-70); POSITIVE DIFFERENTIAL YES; Platelet Count 549 K/mm3 (150-450); RBC Distribution Width CV 13.3 % (11.6-14.6); RBC Distribution Width SD 45.4 fl (35.1-43.9); Red Blood Count 4.38 M/mm3 (4.6-6.2)
--- NOTE | 2020-09-23 19:42 | RAD_ITS ---
STUDY: X-RAY - ABDOMEN/PELVIS REASON FOR EXAM: Male, 85 years old. NGT placement TECHNIQUE: Single AP view of the abdomen / pelvis. COMPARISON: None. FINDINGS: Increased density in both lung bases consistent with pleural effusions and atelectasis or infiltrate. A nasogastric tube terminates in the distal stomach. There is an unremarkable bowel gas pattern. There is no demonstrated free abdominal air. The visualized liver, spleen and kidneys are grossly normal in size and morphology. Normal soft tissue structures. Normal visualized osseous structures. RAD/Abdomen Single View IMPRESSION: Nasogastric tube terminates in the distal stomach. Electronically Signed: Nilesh Floyd MD at 20:36 EDT , Service support ,
--- NOTE | 2020-09-23 19:52 | PCM.HOSP.N ---
Hospitalist Note Called to the bedside this evening secondary to patient with a change in status. Per discussion with nursing staff patient is complaining of more significant nausea and abdominal pain since the NG tube was removed at 2 PM. He is also having more shortness of breath. He was given Lasix 60 mg with minimal response. His Starr was flushed and irrigated with good return but again no good output. His renal function has worsened. He had a CT of his abdomen and pelvis today that shows no bowel obstruction and this was done with oral contrast. This however does show fairly significant ascites as well as pleural effusions bilaterally and I suspect this is why Lasix was given. Per discussion with the admitting physician he was given large amounts of fluid resuscitation on admission secondary to his sepsis. Given his worsening status, an ABG was obtained and shows a pH of 7.37 but this is with a PCO2 of 15.7. He is oxygenating well. A bicarb drip was initiated as I do not believe he will be able to maintain normal pH and continue to blow down his PCO2 continuously. This may all be related to his worsening renal failure. Repeat CBC, CMP and lactic acid are pending. If LFTs are abnormal would recommend coagulation studies. NG tube was replaced since the patient did have emesis and has had continued nausea that has been refractory to antiemetics. I discussed the case with general surgery and no noted bowel obstruction or any other significant GI abnormality was noted on the CAT scan. Nephrology has been consulted. On exam patient has minimal bowel sounds. Vital signs are stable otherwise. Transfer patient to stepdown. This was signed out to the night physician.
[2020-09-23 20:03] LABS: ALB/GLOB Ratio 0.6 RATIO (0.9-2.4); AST(SGOT) 14 U/L (15-37); Alanine Aminotransfer ALT/SGPT 13 U/L (16-61); Albumin, Serum 2.1 g/dL (3.2-5.0); Alkaline Phosphatase 48 U/L (45-117); Anion Gap 19 (5-15); BUN 65 mg/dL (7-18); BUN/Creat Ratio 18.2 RATIO (10-20); Calcium,Total 8.3 mg/dL (8.5-10.1); Chloride 109 mmol/L (98-107); Creatinine, Serum 3.58 mg/dL (0.70-1.30); EST Glomerular Filtration Rate 17 mL/min (>60); Est Glom Filt Rate - Afr Amer 21 mL/min (>60); Estimated Creatinine Clearance 16.59 ml/min; Globulin 3.3 g/dL (2.2-4.2); Glucose 226 mg/dL (74-106); Protein, Total 5.4 g/dL (6.4-8.2); Sodium Level 138 mmol/L (136-145)
[2020-09-23 20:05] LABS: Differential Indicated SCAN CRITERIA MET
[2020-09-23 20:08] LABS: Anisocytosis RARE; Macrocytosis RARE; Platelet Estimate MOD INC (ADEQ); Red Cell Morphology N CHROM NORMAL (NORM C&C)
--- NOTE | 2020-09-23 20:17 | NURSING ---
Report called to stepdown PCU nurse.
[2020-09-23 20:25] LABS: Lactic Acid 5.9 mmol/L (0.4-1.9)
--- NOTE | 2020-09-23 20:25 | NURSING ---
Critical lactic acid result of 5.9 given to Zora in PCU.
--- NOTE | 2020-09-23 20:38 | NURSING ---
Update given to patient's daughter on phone. also aware of transfer.
[2020-09-23] MEDS: Sodium Bicarbonate 8.4% 50 ML Syringe 50 MEQ IV ×3 (21:20→23:43)
[2020-09-23 22:15] LABS: Bedside Glucose 296 mg/dL (70-110)
--- NOTE | 2020-09-23 23:02 | NURSING ---
Update called to Lidya, , at this time regarding transfer of pt. to ICU bed 03. Updates also to be given to Yamini, daughter, . Pt transferred at this time.
--- NOTE | 2020-09-23 23:17 | EKG12_ITS ---
Test Reason : SOB Blood Pressure : / mmHG Vent. Rate : 089 BPM Atrial Rate : 089 BPM P-R Int : 158 ms QRS Dur : 104 ms QT Int : 376 ms P-R-T Axes : 048 -36 003 degrees QTc Int : 457 ms Normal sinus rhythm Left axis deviation Low voltage QRS Nonspecific ST and T wave abnormality Abnormal ECG Confirmed by CELESTINA BAKER, KAPIL ([id number]), video effects editor IRCHY GAUTHIER ([id number]) on 09/25/2020 10:35:57 AM Referred By: DR ROSALES Confirmed By:KAPIL OSCAR MD
[2020-09-23] MEDS: Epinephrine IV 1 mg/10 ml syringe IV (23:36)
[2020-09-23 23:41] LABS: Allen Test Positive; Base Excess -20 mmol/L (-2 to +2); Bicarbonate 12.6 mmol/L (22-26); Blood Gas Specimen Type ART; FI02 100; O2 Delivery Device NRB; PO2 75 mmHG (75-100); SITE L Radial; SO2 81 % (95-99); Total Carbon Dioxide 15 mmol/L; pCO2 63.2 mmHg (35-45); pH 6.91 (7.35-7.45)
[2020-09-23 23:57] LABS: Reflex Lactate? Y
[2020-09-24] VITALS (37 sets, daily range): BP systolic 63–161; BP diastolic 22–90; PULSE 100–128; RESP 10–34; TEMP 35.6–37.6; O2SAT 93–100
--- NOTE | 2020-09-24 00:23 | NURSING ---
Pt transferred up to ICU around 2300, report given at bedside to ICU RNs. MINH Salazar.
[2020-09-24] MEDS: 0.9% Saline Lock 10 ML Syringe IV ×7 (00:40→18:20)
[2020-09-24 00:43] LABS: Absolute Lymphocyte Count 0.37 X10^3/uL (0.83-4.51); Absolute Neutrophil Count 19.3 X10^3/uL (2.0-7.7); Basophil# 0.03 X10^3/uL; Basophil% 0.1 % (0-1); Eosinophil# 0.01 X10^3/uL; Hematocrit 31.3 % (40-54); Hemoglobin 9.5 g/dL (13.0-16.5); Lymphocyte # 0.37 X10^3/ul (0.83-4.51); Lymphocyte % 1.8 % (19-41); Mean Corp Hgb Conc 30.4 g/dL (32-36); Mean Corpuscular Hgb 31.4 pg (27.0-32.0); Mean Corpuscular Volume 103.3 fL (80-94); Mean Platelet Vol. 9.2 fl (6.2-12.0); Monocyte# 0.92 X10^3/uL; Monocyte% 4.4 % (0-10); NRBC Flagged by Analyzer 0 % (0-5); Neutrophil # 19.25 X10^3/uL (2.7-7.7); Neutrophil % 92.6 % (47-70); POSITIVE DIFFERENTIAL YES; Platelet Count 334 K/mm3 (150-450); RBC Distribution Width CV 13.6 % (11.6-14.6); RBC Distribution Width SD 51.7 fl (35.1-43.9); Red Blood Count 3.03 M/mm3 (4.6-6.2); White Blood Count 20.8 K/mm3 (4.4-11.0)
[2020-09-24 00:47] LABS: Differential Indicated SCAN CRITERIA MET
[2020-09-24 00:51] LABS: Allen Test Positive; Base Excess -17 mmol/L (-2 to +2); Bicarbonate 12.1 mmol/L (22-26); FI02 45; O2 Delivery Device BiPAP; PEEP 8; PO2 41 mmHG (75-100); PS 8; RR 14; SITE R Radial; SO2 61 % (95-99); Total Carbon Dioxide 13 mmol/L; pH 7.13 (7.35-7.45)
[2020-09-24] MEDS: Sodium Bicarbonate 8.4% 50 ML Syringe 50 MEQ IV (00:59)
--- NOTE | 2020-09-24 01:05 | NURSING ---
Family approached regarding adding additional medications in order to increase BP, and also by adding these medications an invasive procedure such as placing a large bore IV into his neck needed to be performed. Family absolutely certain that they do not want the big IV in his neck, so no more medicine to be added. Family also approached regarding comfort status and stopping what we are currently doing, such as IVF, vasopressor and BiPAP as pt is currently resisting treatment and bending arms which prevents inflow of IVF/medication. Family does not want to withdraw care at this time. But they will cont to evaluate the situation as the night progresses. Emotional support provided to all at bedside.
[2020-09-24 01:11] LABS: Anion Gap 16 (5-15); BUN 55 mg/dL (7-18); BUN/Creat Ratio 17.9 RATIO (10-20); Calcium,Total 6.2 mg/dL (8.5-10.1); Chloride 116 mmol/L (98-107); Creatinine, Serum 3.08 mg/dL (0.70-1.30); EST Glomerular Filtration Rate 21 mL/min (>60); Est Glom Filt Rate - Afr Amer 25 mL/min (>60); Estimated Creatinine Clearance 19.28 ml/min; Glucose 248 mg/dL (74-106); Potassium 4.3 mmol/L (3.5-5.1); Sodium Level 142 mmol/L (136-145)
--- NOTE | 2020-09-24 03:10 | PN.HOSP_ITS ---
Hospitalist Note Patient was seen and examined earlier this morning, he was moved from PCU stepdown status to ICU due to deterioration of the patient's medical condition. Patient became extremely hypotensive, he was felt to probably be septic, broad- spectrum antibiotics have been started on PCU and labs obtained on PCU showed an elevated lactic acid and white blood cell count. Patient was also noted to be acidotic and IV bicarb was given as well as IV fluids. Despite aggressive care on PCU stepdown however, patient's medical status deteriorated and he was admitted to ICU. Conversations were carried out with the patient's who stated that she did not want the patient intubated if need be and further discussions with her indicated that she wished the patient to be a DNR CC arrest. At the time of this dictation, patient remains hypotensive despite IV pressor agent administration and vigorous fluid resuscitation. I am unsure whether the patient is septic at this time but I do not have a reason for his hypotension other than possible sepsis. An EKG was obtained which showed no evidence of ischemic changes. As of this time, I will continue to administer fluids and pressor agents, patient's prognosis is extremely guarded at this time, patient's does not want further aggressive treatment such as a central line instituted at this time.
[2020-09-24 06:03] LABS: Blood Gas Specimen Type VEN
[2020-09-24 07:34] LABS: ALB/GLOB Ratio 0.6 RATIO (0.9-2.4); AST(SGOT) 41 U/L (15-37); Alanine Aminotransfer ALT/SGPT 16 U/L (16-61); Albumin, Serum 1.8 g/dL (3.2-5.0); Alkaline Phosphatase 53 U/L (45-117); Anion Gap 17 (5-15); BUN 60 mg/dL (7-18); BUN/Creat Ratio 16.7 RATIO (10-20); Calcium,Total 7.8 mg/dL (8.5-10.1); Chloride 107 mmol/L (98-107); Creatinine, Serum 3.59 mg/dL (0.70-1.30); EST Glomerular Filtration Rate 17 mL/min (>60); Est Glom Filt Rate - Afr Amer 21 mL/min (>60); Estimated Creatinine Clearance 17.11 ml/min; Globulin 3.1 g/dL (2.2-4.2); Glucose 254 mg/dL (74-106); Magnesium 1.9 mg/dL (1.6-2.6); Potassium 4.9 mmol/L (3.5-5.1); Protein, Total 4.9 g/dL (6.4-8.2); Sodium Level 140 mmol/L (136-145)
[2020-09-24] MEDS: TITRATION PARAMETER CHANGE 1 EACH IV (07:34)
[2020-09-24 08:00] LABS: Absolute Lymphocyte Count 0.77 X10^3/uL (0.83-4.51); Absolute Neutrophil Count 22.2 X10^3/uL (2.0-7.7); Basophil# 0.06 X10^3/uL; Basophil% 0.2 % (0-1); Eosinophil# 0.01 X10^3/uL; Hematocrit 40.5 % (40-54); Hemoglobin 13.8 g/dL (13.0-16.5); Lymphocyte # 0.77 X10^3/ul (0.83-4.51); Lymphocyte % 3.1 % (19-41); Mean Corp Hgb Conc 34.1 g/dL (32-36); Mean Platelet Vol. 9.2 fl (6.2-12.0); Monocyte# 1.39 X10^3/uL; Monocyte% 5.7 % (0-10); NRBC Flagged by Analyzer 0 % (0-5); Neutrophil # 22.16 X10^3/uL (2.7-7.7); Neutrophil % 90.2 % (47-70); POSITIVE DIFFERENTIAL YES; Platelet Count 477 K/mm3 (150-450); RBC Distribution Width CV 13.2 % (11.6-14.6); RBC Distribution Width SD 44.6 fl (35.1-43.9); Red Blood Count 4.45 M/mm3 (4.6-6.2); White Blood Count 24.6 K/mm3 (4.4-11.0)
[2020-09-24 08:01] LABS: Differential Indicated SCAN CRITERIA MET
[2020-09-24 08:17] LABS: Differential Comment SCANNED
[2020-09-24 08:28] LABS: Lactic Acid 3.4 mmol/L (0.4-1.9)
[2020-09-24] MEDS: Ondansetron 4 MG/2 ML Vial IV ×2 (09:10→17:02)
--- NOTE | 2020-09-24 09:34 | RAD_ITS ---
STUDY: X-RAY - ABDOMEN/PELVIS REASON FOR EXAM: Male, 85 years old. abd distention TECHNIQUE: Single AP view of the abdomen / pelvis. COMPARISON: 09/23/2020 FINDINGS: Interval removal nasogastric tube. Oral contrast throughout the colon. Starr catheter. There is an unremarkable bowel gas pattern. The visualized liver, spleen and kidneys are grossly normal in size and morphology. Normal soft tissue structures. Normal visualized osseous structures. RAD/Abdomen Single View (Portable) IMPRESSION: Normal x-ray examination of the abdomen and pelvis. Electronically Signed: Art Marmolejo MD at 10:17 EDT Tel , Service support ,
--- NOTE | 2020-09-24 09:54 | CON.PCM.CC_ITS ---
Assessment & Plan Assessment/Plan (1) Severe sepsis: (2) Abdominal distention: (3) Urinary retention due to benign prostatic hyperplasia: (4) HTN (hypertension): (5) Diabetes mellitus type 2 with complications: (6) BPH (benign prostatic hyperplasia): (7) HLD (hyperlipidemia): (8) PVD (peripheral vascular disease): (9) CAD (coronary artery disease): PLAN: RECOMMENDATIONS: 1. Clarify CODE STATUS with family 2. Continue Levophed to a peripheral line 3. Possible hospice measures later today 4. Possible paracentesis if family is agreeable 5. Discontinue nephrology consult given family's refusal of dialysis IMPRESSIONS: 1. Septic shock of unclear etiology Unclear etiology. Patient does have self-catheterization, so urinary source would be expected by history. Patient did have a 5 cm unclear mass noted on CT of the abdomen. Abscess? Patient is significantly fluid positive, so may have an element of abdominal ascites with SBP. Patient did have a pleural effusion, but no obvious infiltrates were noted. Pneumonia would be a concern. Patient did not have cultures and was pretreated prior to presentation, so these would have decreased sensitivities. Patient currently receiving Levophed through a peripheral line given family's refusal of a central line. 2. Abdominal distention Unclear etiology. Patient does appear to have some air-fluid levels secondary to ileus. Patient is refusing an NG for decompression at this time. CT of the abdomen shows retained contrast in the large bowel with possible restriction at the distal colon. Family is not sure they want to be overly aggressive at this time. Patient may benefit from a paracentesis if family wishes to be aggressive. KUB does not appear to show a perforated viscus on my evaluation, but wait for formal interpretation. Coffee grounds were noted from the OG, but hemoglobin repeat is within normal limits. Patient may have an element of stress gastritis versus gastritis secondary to stretch/distention. Patient is refusing an NG. 3. Acute kidney injury with BPH and hyperkalemia Patient with significant worsening in renal function despite IV fluids. Patient has been placed on a bicarbonate drip. Unclear if patient has an element of hepatorenal syndrome or increased abdominal compartment syndrome. Family is very clear that they would not agree to dialysis, so we will hold off on a nephrology consult until plan of care is improved. 4. Essential hypertension/dyslipidemia/GERD/advanced age/obesity Complicates care, management, recovery and prognosis. Discontinue antihypertensives given problem #1. PPI is reasonable, but doubt statin is making a significant improvement. TIME: 45 minutes critical care time spent addressing patient's septic shock, abdominal distention, acute kidney injury, goals of care, review of all data and collaboration with care team (6 AM to 10 AM) HPI Consult Data Date of Consult: 09/24/20 HPI Narrative HPI Narrative: KRYSTINA REYNOLDS is an 85-year-old male who presented as a transfer from [facility] on 09/20/2020. Patient reportedly was staying at a skilled nursing and was transferred secondary to generalized weakness, chills and concern for urinary tract infection. Patient had been placed on Keflex 48 hours prior to presentation. At the outside facility, patient's white blood cell count was 22.5, chemistry showed a potassium of 5.7, creatinine of 2.02 and a lactate of 3.4. Glucose was elevated at 281 at that time. EKG showed sinus tachycardia with no ischemic changes and COVID-19 testing was negative. Patient does self catheterize secondary to urinary retention was placed on IV Zosyn and transferred to [facility] for further evaluation. Over the following 3 days, patient received significant IV fluids and antibiotics. Yesterday, patient had been transitioned to stepdown status, but overnight was transferred to the ICU for deterioration of medical condition. Patient had become significantly hypotensive requiring peripheral Levophed. Family was called in for acute condition and stated that he would not want to be intubated or receive CPR. They had refused any central line, so Levophed was initiated through a peripheral line. Patient initially was requiring BiPAP therapy secondary to an ABG showing significant combined acidosis. Patient was subsequently started on a bicarbonate drip. On my arrival this morning, patient had marginal hemodynamics, but had refused BiPAP therapy. Nursing did report the patient had coffee grounds in his NG pr ior to removal. Patient had no recollection of overnight events. Patient did have significant abdominal distention and the family felt that this was worse than normal. Patient reportedly does have abdominal obesity, but was not as distended when last evaluated by the family. Unable to obtain a full review of systems secondary to mental condition. Patient has complained of nausea and has been treated with Zofran. Through the course of the morning, Levophed has been improving, along with need for supplemental oxygen. [facility] Medical History (Updated 09/24/20 @ 10:[address] Stuart Ramirez MD) BPH (benign prostatic hyperplasia) CAD (coronary artery disease) Diabetes mellitus type 2 with complications History of TIA (transient ischemic attack) HLD (hyperlipidemia) HTN (hypertension) Lumbar degenerative disc disease PVD (peripheral vascular disease) Self-catheterizes urinary bladder Urinary retention due to benign prostatic hyperplasia Home Medications aspirin 81 mg PO DAILY 09/20/20 [History Last Taken Unknown] glimepiride [Amaryl] 2 mg PO DAILY 09/20/20 [History Last Taken Unknown] losartan 100 mg PO DAILY 09/20/20 [History Last Taken Unknown] metformin 1,000 mg PO BID 09/20/20 [History Last Taken Unknown] metoprolol succinate 50 mg PO BID 09/20/20 [History Last Taken Unknown] omeprazole [Prilosec] 40 mg PO DAILY 09/20/20 [History Last Taken Unknown] rosuvastatin [Crestor] 5 mg PO QHS 09/20/20 [History Last Taken Unknown] Allergy/AdvReac Type Severity Reaction Status Date / Time Sulfa (Sulfonamide Allergy Unclear Verified 09/20/20 18:31 Antibiotics) Social History Smoking Status: Never smoker ROS Review of Systems ROS Unobtainable: due to encephalopathy Physical Exam Const alert and no apparent distress General Appearance: lethargic, frail and grossly edematous HEENT normocephalic and head/scalp atraumatic; Negative for moist oral mucous membranes Eyes PERRL, EOMs intact bilaterally and conjunctivae normal Neck full ROM Lymph Lymphatic: no lymphadenopathy noted Resp normal respiratory effort and no use of accessory muscles Effort and Inspection: able to speak in complete sentences Auscultation: clear to auscultation bilaterally; Negative for rales, rhonchi or wheezes Cardio regular rate, regular rhythm, S1 normal heart sound, S2 normal heart sound, no murmurs, no rub, no gallops and no JVD Rate: tachycardic GI Inspection: abdominal distention Auscultation: absent bowel sounds Palpation: firm and ascites; Negative for rebound tenderness present Percussion: fluid wave no CVA tenderness Extremity General Extremity: edema bilateral (3+ anasarca); Negative for clubbing or cyanosis Peripheral Pulses: Yes radial pulses present Skin no rashes or lesions noted Neuro CN's II-XII intact bilaterally Sensorium / Orientation: lethargic and somnolent Meningeal Signs: no meningeal signs Psych cooperative and affect normal Lab / Micro Data Result Diagrams: 09/24/20 07:50 09/24/20 07:00 Labs: Laboratory Results - last 24 hr 09/23/20 09/23/20 09/23/20 10:46 16:38 19:03 WBC RBC Hgb Hct MCV MCH MCHC RDW Std Deviation RDW Coeff of Andrea Plt Count MPV Immature Gran % (Auto) Neut % (Auto) Lymph % (Auto) Whiteside % (Auto) Eos % (Auto) Baso % (Auto) Absolute Neuts (auto) Absolute Lymphs (auto) Nucleated RBC % Differential Comment Platelet Estimate RBC Morphology Anisocytosis Macrocytosis Sodium Potassium Chloride Carbon Dioxide Anion Gap BUN Creatinine Estim Creat Clear Calc Est GFR (MDRD) Af Amer Est GFR (MDRD) Non-Af BUN/Creatinine Ratio Glucose Lactic Acid Calcium Phosphorus Magnesium Total Bilirubin AST ALT Alkaline Phosphatase Troponin I Total Protein Albumin Globulin Albumin/Globulin Ratio POC Glucose 194 H 188 H 213 H 09/23/20 09/23/20 09/23/20 19:27 19:27 19:50 WBC 17.0 H RBC 4.38 L Hgb 13.7 Hct 40.6 MCV 92.7 MCH 31.3 MCHC 33.7 RDW Std Deviation 45.4 H RDW Coeff of Andrea 13.3 Plt Count 549 H MPV 9.1 Immature Gran % (Auto) 0.600 Neut % (Auto) 91.9 H Lymph % (Auto) 3.4 L Whiteside % (Auto) 3.9 Eos % (Auto) 0.0 Baso % (Auto) 0.2 Absolute Neuts (auto) 15.6 H Absolute Lymphs (auto) 0.58 L Nucleated RBC % 0 Differential Comment SEE COMMENT Platelet Estimate MOD INC RBC Morphology N CHROM Anisocytosis RARE Macrocytosis RARE Sodium 138 Potassium 5.0 Chloride 109 H Carbon Dioxide 10.0 L Anion Gap 19 H BUN 65 H Creatinine 3.58 H Estim Creat Clear Calc 16.59 Est GFR (MDRD) Af Amer 21 L Est GFR (MDRD) Non-Af 17 L BUN/Creatinine Ratio 18.2 Glucose 226 H Lactic Acid 5.9 H* Calcium 8.3 L Phosphorus Magnesium Total Bilirubin 0.50 AST 14 L ALT 13 L Alkaline Phosphatase 48 Troponin I Total Protein 5.4 L Albumin 2.1 L Globulin 3.3 Albumin/Globulin Ratio 0.6 L POC Glucose 09/23/20 09/24/20 09/24/20 21:57 00:30 00:30 WBC 20.8 H RBC 3.03 L Hgb 9.5 L Hct 31.3 L MCV 103.3 H D MCH 31.4 MCHC 30.4 L D RDW Std Deviation 51.7 H RDW Coeff of Andrea 13.6 Plt Count 334 MPV 9.2 Immature Gran % (Auto) 1.100 H Neut % (Auto) 92.6 H Lymph % (Auto) 1.8 L Whiteside % (Auto) 4.4 Eos % (Auto) 0.0 Baso % (Auto) 0.1 Absolute Neuts (auto) 19.3 H Absolute Lymphs (auto) 0.37 L Nucleated RBC % 0 Differential Comment Platelet Estimate RBC Morphology Anisocytosis Macrocytosis Sodium 142 Potassium 4.3 Chloride 116 H Carbon Dioxide 10.0 L Anion Gap 16 H BUN 55 H Creatinine 3.08 H Estim Creat Clear Calc 19.28 Est GFR (MDRD) Af Amer 25 L Est GFR (MDRD) Non-Af 21 L BUN/Creatinine Ratio 17.9 Glucose 248 H Lactic Acid Calcium 6.2 L* Phosphorus Magnesium Total Bilirubin AST ALT Alkaline Phosphatase Troponin I 0.030 Total Protein Albumin Globulin Albumin/Globulin Ratio POC Glucose 296 H 09/24/20 09/24/20 09/24/20 00:30 07:00 07:50 WBC 24.6 H RBC 4.45 L Hgb 13.8 Hct 40.5 MCV 91.0 D MCH 31.0 MCHC 34.1 D RDW Std Deviation 44.6 H RDW Coeff of Andrea 13.2 Plt Count 477 H MPV 9.2 Immature Gran % (Auto) 0.800 Neut % (Auto) 90.2 H Lymph % (Auto) 3.1 L Whiteside % (Auto) 5.7 Eos % (Auto) 0.0 Baso % (Auto) 0.2 Absolute Neuts (auto) 22.2 H Absolute Lymphs (auto) 0.77 L Nucleated RBC % 0 Differential Comment SCANNED Platelet Estimate RBC Morphology Anisocytosis Macrocytosis Sodium 140 Potassium 4.9 Chloride 107 Carbon Dioxide 16.0 L Anion Gap 17 H BUN 60 H Creatinine 3.59 H Estim Creat Clear Calc 17.11 Est GFR (MDRD) Af Amer 21 L Est GFR (MDRD) Non-Af 17 L BUN/Creatinine Ratio 16.7 Glucose 254 H Lactic Acid Cancelled Calcium 7.8 L Phosphorus 6.0 H Magnesium 1.9 Total Bilirubin 0.30 AST 41 H ALT 16 Alkaline Phosphatase 53 Troponin I 0.239 H Total Protein 4.9 L Albumin 1.8 L Globulin 3.1 Albumin/Globulin Ratio 0.6 L POC Glucose 09/24/20 07:50 WBC RBC Hgb Hct MCV MCH MCHC RDW Std Deviation RDW Coeff of Andrea Plt Count MPV Immature Gran % (Auto) Neut % (Auto) Lymph % (Auto) Whiteside % (Auto) Eos % (Auto) Baso % (Auto) Absolute Neuts (auto) Absolute Lymphs (auto) Nucleated RBC % Differential Comment Platelet Estimate RBC Morphology Anisocytosis Macrocytosis Sodium Potassium Chloride Carbon Dioxide Anion Gap BUN Creatinine Estim Creat Clear Calc Est GFR (MDRD) Af Amer Est GFR (MDRD) Non-Af BUN/Creatinine Ratio Glucose Lactic Acid 3.4 H* Calcium Phosphorus Magnesium Total Bilirubin AST ALT Alkaline Phosphatase Troponin I Total Protein Albumin Globulin Albumin/Globulin Ratio POC Glucose ABG Data ABG results: ABG 09/23/20 09/23/20 09/24/20 19:26 23:34 00:36 Specimen Type ART ART BUZZ Sample Site R Radial L Radial R Radial pH 7.37 6.91 L* 7.13 L* Bicarbonate Actual 9.1 L 12.6 L 12.1 L Total CO2 10 15 13 Base Excess -16 L -20 L -17 L O2 Saturation 99 81 L 61 L O2 % 100 45 ABG pCO2 15.7 L* 63.2 H 36.0 ABG pO2 115 H 75 41 L Walter Test Positive Positive Positive Respiration Rate 14 O2 Delivery Device Cannula NRB BiPAP Liter Flow 4.0 POC PEEP 8 POC Pressure Suppt 8 Crit Call To/Read Back Yes Yes Yes Blood Gas Notified Whom dr elsa blum Clinical Comments Radiology Impression Abdomen CT 09/23/20 08:23 IMPRESSION: 1. No bowel obstruction. 2. Volume overload with anasarca, moderate amount of ascites, and large bilateral pleural effusions with bibasilar atelectasis. 3. 5 cm ill-defined area of soft tissue attenuation in the right anterior pararenal space surrounding the inferior vena cava and adjacent to the duodenum and medial aspect of the right kidney of uncertain etiology and significance which may represent scarring or lymphadenopathy. Electronically Signed: Art Marmolejo MD at 11:43 EDT Tel , Service support , KUB X-Ray 09/23/20 19:42 IMPRESSION: Nasogastric tube terminates in the distal stomach. Electronically Signed: Nilesh Floyd MD at 20:36 EDT , Service support , Charges/Coding Procedures Hospitalists Procedures: [id number] [facility] H[facility]
[2020-09-24] MEDS: proCHLORPERazine 10 MG/2 ML Vial IV ×2 (10:20→15:07)
[2020-09-24 11:56] LABS: Reflex Lactate? Y
[2020-09-24] MEDS: Haloperidol Lactate 5 MG/ML Vial IV (13:15)
--- NOTE | 2020-09-24 15:06 | CASEMGMT ---
SW spoke w/RN, physician spoke w/family and made referral for hospice. SW called [facility], faxed referral. Lenard states she can be here between 3:30pm and 4:00pm. SW spoke w/, let her know referral made, and hospice will be here between 3:30pm and 4:00pm. SW educated briefly about hospice. Pt's son, daughter, two brothers, sister and sister in law are also here. SW inquired if pt has a POA, she states no, SW explained that the decision would be up to the pt if he is able or up to her. SW explained that she can certainly speak w/family and get input in regard to decisions. states understanding. She would like to meet w/hospice outside the room at the tables by the elevator. SW notified hospice. SW remains available for any additional needs. ESCOBAR Ha
[2020-09-24] MEDS: Morphine 2 MG/ML Syringe IV (15:25)
[2020-09-24] MEDS: LORazepam 2 MG/ML Syringe IV ×2 (17:02→18:19)
--- NOTE | 2020-09-24 17:06 | DS.PCM_ITS ---
Providers Date of Admission: 09/20/20 Primary Care Physician: Dr. 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 Routine Consulting Provider: [facility] Reason for Consult: hypotension EMERGENT Consult: No MD Notified: Yes Date Notified:: 09/23/20 Time Notified: 23:02 Method of Notification: Text Reason For Visit: SEVERE SEPSIS, UTI Diagnosis Discharge Diagnosis (1) Severe sepsis: Status: Acute Code(s): A41.9 - Sepsis, unspecified organism; R65.20 - Severe sepsis without septic shock (2) Abdominal distention: Status: Acute Code(s): R14.0 - Abdominal distension (gaseous) (3) Urinary retention due to benign prostatic hyperplasia: Status: Inactive Code(s): N40.1 - Benign prostatic hyperplasia with lower urinary tract symptoms; R33.8 - Other retention of urine (4) HTN (hypertension): Status: Inactive Code(s): I10 - Essential (primary) hypertension (5) Diabetes mellitus type 2 with complications: Status: Inactive Code(s): E11.8 - Type 2 diabetes mellitus with unspecified complications (6) BPH (benign prostatic hyperplasia): Status: Inactive Code(s): N40.0 - Benign prostatic hyperplasia without lower urinary tract symptoms (7) HLD (hyperlipidemia): Status: Inactive Code(s): E78.5 - Hyperlipidemia, unspecified (8) PVD (peripheral vascular disease): Status: Inactive Code(s): I73.9 - Peripheral vascular disease, unspecified (9) CAD (coronary artery disease): Status: Inactive Code(s): I25.10 - Atherosclerotic heart disease of [place] coronary artery without angina pectoris (10) Septic shock: Status: Acute Code(s): A41.9 - Sepsis, unspecified organism; R65.21 - Severe sepsis with septic shock Hospital Course Operations None Procedures None Summary of Care Provided Minutes Spent on Discharge: 35 Hospital Course: Per HPI: KRYSTINA REYNOLDS, is a 85 M who was directly admitted to ICU at [facility] from an emergency room at [facility], patient went to the hospital there for assessment of generalized weakness, chills, and possible urinary tract infection. Patient had been placed on Keflex 48 hours ago for possible UTI. Labs were obtained at the emergency room, patient's white blood cell count was elevated at 22.5, chemistry profile was remarkable for potassium of 5.7, BUN of 60, creatinine of 2.02, patient's lactic acid was elevated at 3.4, glucose was 281. Patient had an EKG performed which showed sinus tachycardia at 102, no acute ischemic changes were noted, patient had a chest x-ray performed that showed no acute cardiopulmonary findings, UA was unable to be obtained secondary to inability to place a Starr catheter. Covid 19 test was negative, and troponin w as unremarkable. Patient was felt to have severe sepsis secondary to acute cystitis-due to self-catheterization at home for urinary retention. Patient was given IV Zosyn at the emergency room and transferred to [facility] ICU for direct admission. Hospital Course: 1. Severe sepsis secondary to UTI which progressed to septic shock with pressor requirements and acute renal [id number] male presented from home to an outpatient ER and severe sepsis. At the time his lactic acid was 3.4. 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 He was put on broad-spectrum antibiotics and initially seemed to be improving especially with fluid resuscitation however last evening he decompensated critically. His creatinine bumped to 3.59 and his blood pressures bottomed out requiring pressor support. He also stopped making urine, and his white count climbed and the CT scan demonstrated anasarca and volume overload with a 5 cm attenuated mass is around his right kidney which could potentially be an abscess. There was no bowel obstruction on the CT scan, however based on his history sounds like he has a pretty severe ileus. We had extensive discussions with both the patient and the family, and we requested to put in the central line to be able to provide better pressor support at they declined. We also discussed the possibility of needing to start dialysis to alleviate his volume overload and the intervention that that would entail and they declined that as well. At this point in discussions with him and his family he elected to become a DNR CC and did not want any further aggressive interventions. I had a 25- minute discussion with the family on advance care planning and they requested to be discharged on hospice, initially they wanted to go to a fpc that their daughter works for however later they changed her mind after meeting with hospice and requested to go to the inpatient hospice unit. 2. Type 2 diabetes, benign prostatic hypertrophy, hypertension, hyperlipidemia, GERD are all chronic medical conditions which complicate his care. His home medications were continued where appropriate Physical Exam Const alert and no apparent distress General Appearance: lethargic and frail HEENT normocephalic Mouth: dry mucous membranes Eyes PERRL, EOMs intact bilaterally and conjunctivae normal Neck supple and no JVD Resp normal respiratory effort, no retractions, no use of accessory muscles and clear to auscultation bilaterally Auscultation: Negative for crackles, rales, rhonchi or wheezes Cardio regular rhythm, S1 normal heart sound, S2 normal heart sound and no murmurs Rate: tachycardic GI non-tender Inspection: anasarca present and abdominal distention Palpation: firm Extremity normal to inspection General Extremity: edema bilateral lower extremity Details: severe Skin no rashes or lesions noted Neuro no focal motor deficits and no sensory deficits noted Psych affect normal ABG / Lab / Microbiology Data Result Diagrams: 09/24/20 07:50 09/24/20 07:00 Laboratory: Laboratory Results - last 24 hr 09/23/20 09/23/20 09/23/20 16:38 19:03 19:27 WBC RBC Hgb Hct MCV MCH MCHC RDW Std Deviation RDW Coeff of Andrea Plt Count MPV Immature Gran % (Auto) Neut % (Auto) Lymph % (Auto) [place]ill % (Auto) Eos % (Auto) Baso % (Auto) Absolute Neuts (auto) Absolute Lymphs (auto) Nucleated RBC % Differential Comment Platelet Estimate RBC Morphology Anisocytosis Macrocytosis Sodium 138 Potassium 5.0 Chloride 109 H Carbon Dioxide 10.0 L Anion Gap 19 H BUN 65 H Creatinine 3.58 H Estim Creat Clear Calc 16.59 Est GFR (MDRD) Af Amer 21 L Est GFR (MDRD) Non-Af 17 L BUN/Creatinine Ratio 18.2 Glucose 226 H Lactic Acid Calcium 8.3 L Phosphorus Magnesium Total Bilirubin 0.50 AST 14 L ALT 13 L Alkaline Phosphatase 48 Troponin I Total Protein 5.4 L Albumin 2.1 L Globulin 3.3 Albumin/Globulin Ratio 0.6 L POC Glucose 188 H 213 H 09/23/20 09/23/20 09/23/20 19:27 19:50 21:57 WBC 17.0 H RBC 4.38 L Hgb 13.7 Hct 40.6 MCV 92.7 MCH 31.3 MCHC 33.7 RDW Std Deviation 45.4 H RDW Coeff of Andrea 13.3 Plt Count 549 H MPV 9.1 Immature Gran % (Auto) 0.600 Neut % (Auto) 91.9 H Lymph % (Auto) 3.4 L [place] % (Auto) 3.9 Eos % (Auto) 0.0 Baso % (Auto) 0.2 Absolute Neuts (auto) 15.6 H Absolute Lymphs (auto) 0.58 L Nucleated RBC % 0 Differential Comment SEE COMMENT Platelet Estimate MOD INC RBC Morphology N CHROM Anisocytosis RARE Macrocytosis RARE Sodium Potassium Chloride Carbon Dioxide Anion Gap BUN Creatinine Estim Creat Clear Calc Est GFR (MDRD) Af Amer Est GFR (MDRD) Non-Af BUN/Creatinine Ratio Glucose Lactic Acid 5.9 H* Calcium Phosphorus Magnesium Total Bilirubin AST ALT Alkaline Phosphatase Troponin I Total Protein Albumin Globulin Albumin/Globulin Ratio POC Glucose 296 H 09/24/20 09/24/20 09/24/20 00:30 00:30 00:30 WBC 20.8 H RBC 3.03 L Hgb 9.5 L Hct 31.3 L MCV 103.3 H D MCH 31.4 MCHC 30.4 L D RDW Std Deviation 51.7 H RDW Coeff of Andrea 13.6 Plt Count 334 MPV 9.2 Immature Gran % (Auto) 1.100 H Neut % (Auto) 92.6 H Lymph % (Auto) 1.8 L [place] % (Auto) 4.4 Eos % (Auto) 0.0 Baso % (Auto) 0.1 Absolute Neuts (auto) 19.3 H Absolute Lymphs (auto) 0.37 L Nucleated RBC % 0 Differential Comment Platelet Estimate RBC Morphology Anisocytosis Macrocytosis Sodium 142 Potassium 4.3 Chloride 116 H Carbon Dioxide 10.0 L Anion Gap 16 H BUN 55 H Creatinine 3.08 H Estim Creat Clear Calc 19.28 Est GFR (MDRD) Af Amer 25 L Est GFR (MDRD) Non-Af 21 L BUN/Creatinine Ratio 17.9 Glucose 248 H Lactic Acid Cancelled Calcium 6.2 L* Phosphorus Magnesium Total Bilirubin AST ALT Alkaline Phosphatase Troponin I 0.030 Total Protein Albumin Globulin Albumin/Globulin Ratio POC Glucose 09/24/20 09/24/20 09/24/20 07:00 07:50 07:50 WBC 24.6 H RBC 4.45 L Hgb 13.8 Hct 40.5 MCV 91.0 D MCH 31.0 MCHC 34.1 D RDW Std Deviation 44.6 H RDW Coeff of Andrea 13.2 Plt Count 477 H MPV 9.2 Immature Gran % (Auto) 0.800 Neut % (Auto) 90.2 H Lymph % (Auto) 3.1 L [place] % (Auto) 5.7 Eos % (Auto) 0.0 Baso % (Auto) 0.2 Absolute Neuts (auto) 22.2 H Absolute Lymphs (auto) 0.77 L Nucleated RBC % 0 Differential Comment SCANNED Platelet Estimate RBC Morphology Anisocytosis Macrocytosis Sodium 140 Potassium 4.9 Chloride 107 Carbon Dioxide 16.0 L Anion Gap 17 H BUN 60 H Creatinine 3.59 H Estim Creat Clear Calc 17.11 Est GFR (MDRD) Af Amer 21 L Est GFR (MDRD) Non-Af 17 L BUN/Creatinine Ratio 16.7 Glucose 254 H Lactic Acid 3.4 H* Calcium 7.8 L Phosphorus 6.0 H Magnesium 1.9 Total Bilirubin 0.30 AST 41 H ALT 16 Alkaline Phosphatase 53 Troponin I 0.239 H Total Protein 4.9 L Albumin 1.8 L Globulin 3.1 Albumin/Globulin Ratio 0.6 L POC Glucose ABG: ABG 09/23/20 09/23/20 09/24/20 19:26 23:34 00:36 Specimen Type ART ART BUZZ Sample Site R Radial L Radial R Radial pH 7.37 6.91 L* 7.13 L* Bicarbonate Actual 9.1 L 12.6 L 12.1 L Total CO2 10 15 13 Base Excess -16 L -20 L -17 L O2 Saturation 99 81 L 61 L O2 % 100 45 ABG pCO2 15.7 L* 63.2 H 36.0 ABG pO2 115 H 75 41 L Walter Test Positive Positive Positive Respiration Rate 14 O2 Delivery Device Cannula NRB BiPAP Liter Flow 4.0 POC PEEP 8 POC Pressure Suppt 8 Crit Call To/Read Back Yes Yes Yes Blood Gas Notified Whom dr elsa blum Clinical Comments Radiography Diagnostic Testing: Radiology Impression KUB X-Ray 09/23/20 19:42 IMPRESSION: Nasogastric tube terminates in the distal stomach. Electronically Signed: Nilesh Floyd MD at 20:36 EDT , Service support , KUB X-Ray 09/24/20 09:34 IMPRESSION: Normal x-ray examination of the abdomen and pelvis. 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
== END 2020-09-24 19:15 | disposition hospice, inpatient (51) | DRG 698 ==
LOC: ICU 09-21 09:17 → MS3 09-21 10:39 → PCU 09-23 20:14 → ICU 09-23 23:02
PROVIDERS: Internal Medicine; Internal Medicine Critical Care Medicine; Admitting Provider Internal Medicine; PCP Internal Medicine; Visit Provider Family Medicine
DX: T83.518A Infection and inflammatory reaction due to other urinary catheter, initial encounter (principal); A41.9 Sepsis, unspecified organism; R65.21 Severe sepsis with septic shock; N30.00 Acute cystitis without hematuria; N17.9 Acute kidney failure, unspecified; J90 Pleural effusion, not elsewhere classified; J98.11 Atelectasis; R18.8 Other ascites; N13.30 Unspecified hydronephrosis; R14.0 Abdominal distension (gaseous); I95.9 Hypotension, unspecified; E86.0 Dehydration; N28.89 Other specified disorders of kidney and ureter; E87.5 Hyperkalemia; E11.51 Type 2 diabetes mellitus with diabetic peripheral angiopathy without gangrene; E78.5 Hyperlipidemia, unspecified; I10 Essential (primary) hypertension; I25.10 Atherosclerotic heart disease of native coronary artery without angina pectoris; K21.9 Gastro-esophageal reflux disease without esophagitis; N40.1 Benign prostatic hyperplasia with lower urinary tract symptoms; R33.8 Other retention of urine; Z66 Do not resuscitate; Z86.73 Personal history of transient ischemic attack (TIA), and cerebral infarction without residual deficits; M51.36 Other intervertebral disc degeneration, lumbar region; Z79.82 Long term (current) use of aspirin; Z79.84 Long term (current) use of oral hypoglycemic drugs; Z79.899 Other long term (current) drug therapy
CPT/HCPCS: 36415; 36600; 74018; 74019; 74176; 76770; 80048; 80053; 82803; 82962; 83605; 83735; 84100; 84484; 85025; 87040; 93005; 94002; 97110; 97162; 97166; 97530; 97535; J7030; J7040; J7050; A4216; J1940; J2405